=== PATIENT | female | born 1955 | race Caucasian/White ===

== ENCOUNTER 2019-10-24 03:12 | Emergency (ER) | payer BC, OTHER ==
--- NOTE | 2019-10-24 03:24 | PDOC ---
History of Present Illness - General Chief Complaint: Pain, Acute Stated Complaint: FLANK PAIN Time Seen by Provider: 10/24/19 03:15 History Source: Patient Exam Limitations: No Limitations - History of Present Illness Initial Comments: 10/24/19 03:27 This is a 64-year-old female who comes in complaining of flank pain times approximately 6 hours. Patient denies history of similar pain in the past. Patient denies history of kidney stones in the past. Patient stated pain is associated with right flank and not any radiation to the right lower quadrant. Patient said she had a urinary tract infection recently otherwise denies any past medical history. Allergies: as per nursing notes Past Medical History: none Social history: Lives with family. No smoking. No alcohol. No illicit drugs. Surgical history: None General: No fevers or chills, no weakness, no weight loss HEENT: No change in vision. No sore throat,. No ear pain CardioVascular: no chest discomfort. No shortness of breath Respiratory:No cough, or wheezing. Gastrointestinal: no nausea, vomiting, diarrhea or constipation, No rectal bleeding Genitourinary: No dysuria, hematuria, or frequency Musculoskeletal: No joint or muscle pain or swelling Neurologic: No headache, vertigo, dizziness or loss of consciousness Psychiatric: nor depression Skin: No rashes or easy bruising Endocrine: no increased thirst or abnormal weight change Allergic: no skin or latex allergy All other systems reviewed and normal Exam: General: Well-nourished well-developed individual, no acute distress HEENT: Throat: Normal, tonsils normal, no erythema or exudate Neck: Supple, no meningeal signs, no lymphadenopathy Eyes::Pupils equal reactive and round, extraocular motion intact Abdomen: Soft, nondistended, normal bowel sounds, there is no tenderness on palpation diffusely Backslash flank: There is tenderness on palpation right flank Extremities: Warm, dry, no cyanosis, clubbing, or edema Skin: No rashes Neuro: Alert and oriented x3, CN II - XII intact, nonfocal exam with normal strength, normal sensation, normal reflexes, normal gait, Psych: Normal mood and affect Assessment and plan: This is a 64-year-old female with right flank pain. Patient has work-up initiated including CBC, comp, UA, to rule out kidney stone. Patient given IV fluids morphine and Toradol for the pain 10/24/19 06:06 Patient Information: : 1955 Order Type: Preliminary Name: KIM PETERS Sex: F Study Description: CT ABDOMEN AND PELVIS Modality: CT Location: [facility] Referring Physician: TRICIA KELLY I Comments: Tate Briceño MD wrote on Oct 24, 2019 at 05:06 AM: Referring Physician: TRICIA KELLY I Patient Name: FRAN ALVAERZ THIS IS A PRELIMINARY REPORT DATE OF SERVICE: 2019-10-24 04:21:27 IMAGES: [id number] EXAM: CT abdomen and pelvis without contrast HISTORY: Right flank pain COMPARISON: None. FINDINGS: Lung bases are clear. The visualized cardiac chambers are normal size and configuration. Right kidney is enlarged and heterogeneous with a suspected 5.4 x 5.2 cm partially calcified mass in the midpole, possibly ruptured. No stones or hydronephrosis. There is perinephric edema but no perinephric hematoma. Normal liver, gallbladder, pancreas, spleen, adrenal glands and left kidney. The stomach and abdominal small and large bowel are normal. There is no aortic aneurysm. There is no significant retroperitoneal lymphadenopathy. The pelvic small and large bowel are normal. There is no evidence of appendi citis, though the appendix is not clearly visualized. The uterus and adnexal structures are normal. Urinary bladder CONFIDENTIALITY NOTICE: This information is intended only for the use of the recipient(s) named above. If you are not the intended recipient, or a person responsible for delivering it to the intended recipient, you are hereby notified that any disclosure, copying, distribution or use of any of the information contained in or attached to this transmission is STRICTLY PROHIBITED. If you have received this transmission in error, please immediately notify [facility] [facility] and destroy the original transmission and its attachments without saving them in any manner Past History - Medical History Allergies/Adverse Reactions: Allergies Allergy/AdvReac Type Severity Reaction Status Date / Time Sulfa (Sulfonamide Allergy Verified 10/24/19 03:34 Antibiotics) ED Treatment Course - LABORATORY CBC & Chemistry Diagram: 10/24/19 03:35 10/24/19 03:35 Discharge - Discharge Information Problems reviewed: Yes Clinical Impression/Diagnosis: Renal mass Condition: Fair Disposition: TRANSFER ACUTE CARE/OTHER HOSP - Follow up/Referral - Patient Discharge Instructions - Post Discharge Activity
[2019-10-24] MEDS ORDERED: SODIUM CHLORIDE 1,000 ML IV ONE (03:25)
[2019-10-24] MEDS ORDERED: KETOROLAC TROMETHAMINE 30 MG/1 ML VIAL IVPUSH ONE (03:25)
[2019-10-24] MEDS ORDERED: ONDANSETRON 4 MG/2 ML VIAL IVPB ONE (03:25)
[2019-10-24] MEDS ORDERED: morphine CARPU-JECT 2 MG/1 ML DISP.SYRIN IVPUSH ONE ×2 (03:25→03:52)
[2019-10-24] MEDS ORDERED: KETOROLAC TROMETHAMINE 30 MG/1 ML VIAL ONE (03:27)
[2019-10-24] MEDS ORDERED: morphine SULFATE 4 MG/ML VIAL ONE ×2 (03:28→03:57)
[2019-10-24] MEDS ORDERED: ONDANSETRON 4 MG/2 ML VIAL ONE (03:28)
[2019-10-24 03:40] VITALS: BMI 23.5
[2019-10-24 04:16] LABS: BASO % 0.4 % (0-2.0); EOS % 0.5 % (0-4.5); HEMATOCRIT 41.2 % (32.4-45.2); HEMOGLOBIN 13.7 GM/dL (10.7-15.3); MCH 31.1 pg (25.7-33.7); MCHC 33.2 g/dl (32.0-36.0); MEAN CELL VOLUME 93.8 fl (80-96); MEAN PLT VOLUME 9.4 fl (7.5-11.1); MONO % 4.9 % (3.8-10.2); NEUT % 84.2 % (42.8-82.8); PLATELET COUNT 304 K/MM3 (134-434); RDW 12.7 % (11.6-15.6); WHITE BLOOD COUNT 10.8 K/mm3 (4.0-10.0)
[2019-10-24 04:40] LABS: BILIRUBIN,TOTAL 0.4 mg/dL (0.2-1); CALCIUM 9.1 mg/dL (8.5-10.1); CREATININE 0.9 mg/dL (0.55-1.3); POTASSIUM 4.3 mmol/L (3.5-5.1); TOT PROT 7.2 g/dl (6.4-8.2)
[2019-10-24 04:44] LABS: BLOOD UREA NITROGEN 22.3 mg/dL (7-18)
[2019-10-24 05:20] LABS: PH,URINE 6.5 (5.0-8.0); URINE APPEARANCE CLEAR; URINE BILIRUBIN NEGATIVE (NEGATIVE); URINE COLOR YELLOW; URINE GLUCOSE (UA) NEGATIVE (NEGATIVE); URINE KETONE 3+ (NEGATIVE); URINE LEUK ESTERASE NEGATIVE (NEGATIVE); URINE NITRITE NEGATIVE (NEGATIVE); URINE PROTEIN TRACE (NEGATIVE); URINE UROBILINOGEN 0.2 mg/dL (0.2-1.0)
[2019-10-24 05:58] VITALS: BP 128/67; PULSE 92
[2019-10-24 06:42] VITALS: TEMP 97.9
== END 2019-10-24 06:44 | disposition short-term general hospital (02) ==
LOC: FER 03:12
PROC: 3E0333Z Introduction of Anti-inflammatory into Peripheral Vein, Percutaneous Approach (ICD-10-PCS; principal; 2019-10-24)
PROC: 3E033GC Introduction of Other Therapeutic Substance into Peripheral Vein, Percutaneous Approach (ICD-10-PCS; 2019-10-24)
PROC: 3E0337Z Introduction of Electrolytic and Water Balance Substance into Peripheral Vein, Percutaneous Approach (ICD-10-PCS; 2019-10-24)
DX: N28.89 Other specified disorders of kidney and ureter (principal)
CPT/HCPCS: 36415; 74176-TC; 80053; 81003; 85025; 99285-25

== ENCOUNTER 2020-09-14 11:10 | Emergency (ER) | payer OTHER, BC ==
[2020-09-14] MEDS ORDERED: ACETAMINOPHEN 325 MG TABLET (FP) PO ONE (11:32)
[2020-09-14] MEDS ORDERED: DIPHTH,PERTUSS(ACELL),TET 0.5 ML DISP.SYRIN IM ONE ×2 (11:33→11:55)
[2020-09-14] MEDS ORDERED: ACETAMINOPHEN 325 MG TABLET (FP) ONE (11:55)
[2020-09-14 11:56] VITALS: BP 112/64; PULSE 66; TEMP 98; BMI 22.5
== END 2020-09-14 12:42 | disposition home or self-care (01) ==
LOC: FER 11:10
PROC: 3E0234Z Introduction of Serum, Toxoid and Vaccine into Muscle, Percutaneous Approach (ICD-10-PCS; principal; 2020-09-14)
DX: R07.89 Other chest pain (principal)
CPT/HCPCS: 71046-TC-FY; 90471; 90715; 99284-25